=== PATIENT | male | born 2000 | race Caucasian/White ===

== ENCOUNTER 2023-02-02 16:30 | Emergency (ER) | payer BC ==
[2023-02-02] MEDS ORDERED: Sodium Chloride 0.9% 1,000 ML IV ONE (19:40)
[2023-02-02 20:25] LABS: HEMATOCRIT 46.2 % (38.0-50.0); HEMOGLOBIN 16.1 g/dL (13.0-17.0); MEAN CORPUSCULAR HEMOGLOBIN 30.1 pg (27.0-32.0); MEAN CORPUSCULAR HGB CONC 34.8 g/dL (31.0-37.0); MEAN CORPUSCULAR VOLUME 86.5 fL (80.0-98.0); NRBC ABSOLUTE 0 K/uL; NRBC PERCENT 0.8 /100WBC; PLATELET COUNT,PLT 217 K/uL (150-400); RED BLOOD CELL COUNT 5.34 M/uL (4.50-5.90); WHITE BLOOD CELL COUNT,WBC 12.52 K/uL (4.0-11.0)
[2023-02-02 20:41] LABS: BILIRUBIN TOTAL 0.4 mg/dL (0.2-1.0); CALCIUM 8.8 mg/dL (8.5-10.1); CARBON DIOXIDE,CO2 28.7 mmol/L (21.0-32.0); CREATININE 0.8 mg/dL (0.8-1.3); EST CRCL DRUG DOSING (CG) 124.66 mL/min; POTASSIUM,K 4.2 mmol/L (3.5-5.1)
[2023-02-02 20:46] LABS: LYMPHOCYTES % ATYPICAL MANUAL 13; LYMPHOCYTES ABSOLUTE MAN 6.5 (0.6-2.4); LYMPHOCYTES PERCENT MAN 52 % (16.0-40.0); MONOCYTES ABSOLUTE MAN 0.8 (0.0-0.8); MONOCYTES PERCENT MAN 6 % (0.0-15.0); SEG NEUTROPHILS ABSOLUTE MAN 3.4 (1.4-5.7); SEG NEUTROPHILS PERCENT MAN 27 % (48.0-80.0)
[2023-02-02 20:47] LABS: BASOPHILS ABSOLUTE MAN 0.3 (0.0-0.1); BASOPHILS PERCENT MAN 2 % (0.0-1.5)
[2023-02-02] MEDS ORDERED: Iopamidol 755 MG/ML 500 ML Multipack Bottle IVPUSH ONE (21:07)
== END 2023-02-02 23:14 | disposition home or self-care (01) ==
LOC: MW.ED 16:30
DX: B36.0 Pityriasis versicolor (principal); B27.90 Infectious mononucleosis, unspecified without complication
CPT/HCPCS: 36415; 70491; 80053; 85025; 86308; 87651; 96360; 99283; J7030; Q9967; 99284